=== PATIENT | female | born 1960 | race Caucasian/White ===

== ENCOUNTER 2023-11-21 11:14 | Emergency (ER) | payer SELFPAY ==
[~2023-11-21] VITALS: Ht 165.1 cm; Wt 55.0 kg
[2023-11-21 11:25] VITALS: BP 116/62; PULSE 70; RESP 16; TEMP 98.4; O2SAT 96
[2023-11-21] MEDS ORDERED: ISOP30DR11 OT (11:30)
== END 2023-11-21 11:35 | disposition home or self-care (01) ==
LOC: ER 11:14
DX: H61.21 Impacted cerumen, right ear (principal)
CPT/HCPCS: 99283